=== PATIENT | male | born 1990 | race Caucasian/White ===

== ENCOUNTER 2020-06-18 10:41 | Emergency (ER) | payer OTHER, SELFPAY ==
[2020-06-18 10:43] VITALS: BP 124/86; PULSE 67; RESP 13; TEMP 36.8; O2SAT 99; BMI 30.4
--- NOTE | 2020-06-18 10:46 | EKG12_ITS ---
Test Reason : ANXIETY Blood Pressure : / mmHG Vent. Rate : 062 BPM Atrial Rate : 062 BPM P-R Int : 162 ms QRS Dur : 094 ms QT Int : 396 ms P-R-T Axes : 055 055 042 degrees QTc Int : 401 ms Normal sinus rhythm Normal ECG Confirmed by JOVANNY NEELY, JESUS ([id number]), editor managing newspaper JORGE PHILLIPS ([id number]) on 06/22/2020 9:13:22 AM Referred By: MAYA Confirmed By:SELIN PETTY MD
--- NOTE | 2020-06-18 10:49 | ED.RN ---
PT REPORTS HE DOES NOT WANT TO FILE WORKMANS COMP.
[2020-06-18] MEDS: LORazepam 1 MG Tablet PO (10:50)
--- NOTE | 2020-06-18 10:50 | ED.VIS.GEN ---
History of Present Illness Chief Complaint: Anxiety Informant: Patient Onset: Today Context: Sudden Onset Timing: Continuous Current Severity: Moderate Maximum Severity: Severe Narrative: The patient is a healthy 30-year-old male presents to the emergency department with anxiety reaction. Patient was at work. 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 He states that after washing it, he became very anxious. He states he started to hyperventilate, and got lightheaded. He states he also began to have numbness in his arms and around his face. He states he felt like he cannot catch his breath cannot get enough air. By the time he got here, he states his symptoms have started to improve. He feels like he is more comfortable. He is still complaining of some anxiety. He has no thoughts of self-harm. He states up until today, has been in his normal state of health. Prior similar symptoms: No Recent Illness/Hospitalization: No Past Medical History - Allergies and Home Meds Allergies/Adverse Reactions: Allergies Penicillins Allergy (Verified 06/18/20 10:42) Beth Primary Care Physician: Care Physician,No Primary [Primary Care Provider] - Prior records reviewed: Yes Past Medical History: None Surgical History: noncontributory Smoking Status: Current every day smoker Review of Systems General: Denies: Chills, Fever, Sweats Eyes: Denies: Visual changes - bilaterally, Diplopia ENT: Denies: Rhinorrhea, Sore throat Cardiovascular: Reports: Palpitations. Denies: Chest pain Respiratory: Denies: Dyspnea, Cough, Dyspnea on exertion Gastrointestinal: Denies: Abdominal pain, Nausea, Vomiting, Diarrhea, Melena, Hematochezia Genitourinary: Denies: Dysuria, Hematuria, Frequency Musculoskeletal: Denies: Back pain, Extremity Pain Skin: Denies: Rash, Wounds Neurological: Denies: Headache, Weakness, Numbness Physical Exam Vital Signs/Narrative: Vital Signs Temp Pulse Resp BP Pulse Ox 06/18/20 10:43 98.3 F 67 13 124/86 H 99 Inital Vital Signs reviewed: Yes General: Well nourished, Well developed, No Acute Distress Head: Normocephalic, Atraumatic Eyes: Perrl, EOMI ENT: Moist mucous membranes, No rhinorrhea Neck: Supple, Nontender Cardiovascular: Regular rate, Regular rhythm, No murmurs Respiratory: No distress, CTA bilaterally, Chest nontender Abdomen: Soft, Nontender, Nondistended, Normal bowel sounds Back: Nontender, Normal Inspection Extremities: Nontender, No edema Skin: Normal color, No rash Neurological: Alert, Oriented x3, Cranial nerves II-XII grossly intact, Normal Strength, Normal Sensation Psychological: Normal affect, Normal Mood Diagnostic/Tx/Re-eval - Rhythm Strip Rhythm Strip: Sinus Rhythm Rate: 80 Ectopy: None - EKG Initial EKG Interpretation: Sinus Rhythm, No Acute Injury Pattern Prior: No Prior - Medical Decision Making The patient presents with acute anxiety reaction after witnessing a trauma. He is awake and alert. He has had no chest pain. He was given oral Ativan and observed. I did obtain an EKG given her shortness of breath. This was unremarkable. Patient was observed for an hour with resolution of symptoms. At this point, he will be discharged home. Impression 1. Acute anxiety reaction ED Disposition - Plan for ED Patient: Instructions: ED Anxiety Reaction Referrals: Care Physician,No Primary [Primary Care Provider] -
--- NOTE | 2020-06-18 11:40 | ED.RN ---
PT REPORTS THAT HE NOW WANTS TO FILE WORKMAN'S COMP IF POSSIBLE. PT GIVEN FROI, EDUCATED TO FILL OUT APPROPRIATE PAPERWORK. [facility] ASSESSMENT COMPLETED. DR. MCCABE INFORMED.
[2020-06-18 11:58] VITALS: BP 124/77; PULSE 62; RESP 15; O2SAT 99
== END 2020-06-18 11:58 | disposition home or self-care (01) ==
PROVIDERS: Emergency Provider Emergency Medicine
DX: F41.1 Generalized anxiety disorder (principal); F17.200 Nicotine dependence, unspecified, uncomplicated; Z88.0 Allergy status to penicillin
CPT/HCPCS: 93005; 99285